=== PATIENT | male | born 2000 | race Caucasian/White ===

== ENCOUNTER 2018-05-18 20:32 | Inpatient (IN) ==
--- NOTE | 2018-05-18 20:43 | Emergency Department Note ---
Disposition Clinical Impression: Elevated troponin Pericarditis Qualifiers: Pericarditis type: unspecified type Chronicity: acute Qualified Code(s): I30.9 - Acute pericarditis, unspecified Disposition: Admitted As Inpatient Condition: Good Time of Disposition: 23:06 Chest Pain HPI - General Chief Complaint: ED Recheck/Abnormal Lab/Rx Stated Complaint: Trop 4.28 Time Seen by Provider: 05/18/18 20:41 Source: patient Mode of arrival: ambulatory Limitations: no limitations Vital Signs Reviewed: Yes Nursing Notes Reviewed: Yes - History of Present Illness HPI Narrative: Patient is a 17-year-old male otherwise healthy, immunizations up-to-date. He presents today due to reported elevated troponin level of 4, complaint of chest pain last night and this morning. Patient states that last night, he was eating [place] food. He had what felt like heartburn for about 20 minutes in the center of his chest described as a burning sensation and then went away. He took Tums and the pain went away. Denies any nausea or vomiting, sweating, shortness breath or episode. He states that when he woke up this morning around 16, he had a similar sensation that was less intense, no radiation anywhere else, again no associated factors, last around 2 minutes and then went away. He states that his mom later documented going to the hospital for assessment. He does report that he has had multiple family members that have had heart attacks around 19-20 years old. Mother just had a heart attack in her 40s recently. Patient himself has no other hypertension, diabetes, high cholesterol to his knowledge. He takes Celexa for depression. Patient was seen at an outside facility, patient reports that his troponin level is elevated and he was offered transfer to [facility] for [facility]. They were requesting to fly the patient. Patient said that he refused to fly, got angry and left AGAINST MEDICAL ADVICE. He arrived here for second opinion and for further care. - Related Data Home Medications Medication Instructions Recorded Confirmed Citalopram Hydrobromide [Celexa] 40 mg PO HS 05/18/18 05/18/18 Allergies Allergy/AdvReac Type Severity Reaction Status Date / Time No Known Allergies Allergy Verified 05/18/18 22:40 All systems ED: reviewed and negative except as stated. Constitutional: Denies: fever Cardiovascular: Reports: chest pain Respiratory: Denies: cough, dyspnea Gastrointestinal: Denies: abdominal pain, nausea, vomiting, diarrhea Musculoskeletal: Denies: back pain Integumentary: Denies: rash Neurological: Denies: headache, weakness, numbness, paresthesias Chest Pain PMH - Past Medical History Medical history: Reports: no medical history Physical Exam - General Limitations: no limitations General appearance: alert, in no apparent distress - Head Head exam: atraumatic, normocephalic, normal inspection - Eye Eye exam: Present: normal appearance, PERRL, EOMI - ENT ENT exam: normal exam, normal oropharynx, mucous membranes moist - Neck Neck exam: Present: normal inspection, full ROM, trachea midline - Chest Chest inspection: Present: normal inspection, symmetric chest wall rise. Absent : tenderness, rash - Respiratory Respiratory exam: Present: normal lung sounds bilaterally - Cardiovascular Cardiovascular exam: Present: regular rate, normal rhythm, normal heart sounds - Abdominal Exam Abdominal exam: Present: soft, Non-Tender. Absent: tenderness, distention, guarding, rebound, rigidity - Extremities Exam Extremities exam: Present: normal inspection, full ROM. Absent: tenderness, pedal edema - Neurological Exam Neurological exam: Present: alert, oriented X3. Absent: motor sensory deficit - Psychiatric Psychiatric exam: Present: normal affect, normal mood - Skin Skin exam: Present: warm, dry, intact, normal color Course Course Narrative: Vital stable this time. EKG shows difuse ST elevations and LA depression but no STEMI criteria. We will obtain basic blood work, repeat troponin level. We will then talk with cardiology. Concern for likely pericarditis at this time. This will likely be medical management with no skilled labor intervention. Patient has not had any pain since exam this morning he has artery received aspirin 325 mg an outside facility today. 21:43 basic blood work shows elevation white blood cell count elevated leukocyte count; ESR, CRP are also elevated; chest x-ray negative for any acute cardiopulmonary process. Repeat EKG #[address] elevation and mild LA depression. We will consult freight car loader at this time, discuss case, concern for likely pericarditis. Dr. Velasquez personally reviewed the EKGs and was concern for pericarditis as well. Did not want to perform emergent catheter at this time. Patient has not had any chest discomfort since 6 AM this morning. He did not recommend any anticoagulation at this time. Recommended trending troponins, and if he had any new or worsening symptoms will perform heart catheterization earlier. Otherwise, would likely perform heart catheter in the morning due to significant family history. Information discussed with Dr. Mcfarlane and Dr. Rhoades who have accepted the patient for admission at this time. Chest X-Ray 05/18/18 20:41 IMPRESSION: No evidence of pneumonia or pleural effusion. D/ / Kalia Bond / Kalia Bond Interpreting Provider: Kalia Bond Vital Signs Temperature 98.3 F 05/18/18 20:38 Pulse Rate 95 05/18/18 20:38 Respiratory Rate 18 05/18/18 20:38 Blood Pressure 120/81 05/18/18 20:38 O2 Sat by Pulse Oximetry 97 05/18/18 20:38 Temperature 98.3 F 05/18/18 20:38 Pulse Rate 92 05/18/18 22:34 Respiratory Rate 20 05/18/18 22:17 Blood Pressure 125/80 05/18/18 22:34 O2 Sat by Pulse Oximetry 92 05/18/18 22:17 Oxygen Delivery Oxygen Delivery Room Air Chest Pain - MDM Narrative Medical decision making narrative: Vital stable this time. EKG shows difuse ST elevations and LA depression but no STEMI criteria. We will obtain basic blood work, repeat troponin level. We will then talk with cardiology. Concern for likely pericarditis at this time. This will likely be medical management with no skilled labor intervention. Patient has not had any pain since exam this morning he has artery received aspirin 325 mg an outside facility today. 21:43 basic blood work shows elevation white blood cell count elevated leukocyte count; ESR, CRP are also elevated; chest x-ray negative for any acute cardiopulmonary process. Repeat EKG #[address] elevation and mild LA depression. We will consult freight car loader at this time, discuss case, concern for likely pericarditis. Dr. Velasquez personally reviewed the EKGs and was concern for pericarditis as well. Did not want to perform emergent catheter at this time. Patient has not had any chest discomfort since 6 AM this morning. He did not recommend any anticoagulation at this time. Recommended trending troponins, and if he had any new or worsening symptoms will perform heart catheterization earlier. Otherwise, would likely perform heart catheter in the morning due to significant family history. Information discussed with Dr. Mcfarlane and Dr. Rhoades who have accepted the patient for admission at this time. - Medical Records Medical records reviewed: Yes I reviewed the patient's medical records. - Lab Data Lab results reviewed: Yes I reviewed the patient's lab results. Result diagrams: 05/18/18 20:51 05/18/18 20:51 Lab Results 05/18/18 05/18/18 05/18/18 Range/Units 20:41 20:51 20:51 WBC 12.8 H (4.3-11.1) K/mcL RBC 5.19 (4.19-5.50) M/mcL Hgb 15.2 (12.9-16.9) g/dL Hct 45.0 (37.5-50.1) % MCV 86.7 (83.0-100.0) fL MCH 29.3 (28.0-33.3) pg MCHC 33.8 (31.6-35.5) g/dL RDW 13.5 (11.5-14.5) % Plt Count 167 (140-400) K/mcL MPV 10.7 (9.4-12.4) fL Immature Gran % 0.6 (0-4) % Seg Neutrophils % 32.4 % Lymphocytes % 58.1 % Monocytes % 6.9 % Eosinophils % 0.4 % Basophils % 1.6 % Neutrophils # 4.2 (1.6-8.9) K/mcL Lymphocytes # 7.4 H (0.6-4.6) K/mcL Monocytes # 0.9 (0.0-1.3) K/mcL Eosinophils # 0.1 (0.0-0.6) K/mcL Basophils # 0.2 (0.0-0.2) K/mcL Reactive Lymphocytes Present A (Not Present) Platelet Estimate Normal (Normal) ESR (0-10) mm/hr PT 11.5 (9.4-12.1) Seconds INR 1.0 APTT 32.7 (26.0-36.0) Seconds Sodium 136 (136-145) mEq/L Potassium 3.7 (3.5-5.1) mEq/L Chloride 102 (98-107) mEq/L Carbon Dioxide 24 (23-29) mEq/L BUN 9 (6-20) mg/dL Creatinine 0.82 (0.70-1.30) mg/dL Est GFR ( Amer) > 60 Est GFR (Non-Af Amer) > 60 BUN/Creatinine Ratio 11 (6-26) Glucose 89 (70-105) mg/dL Calculated Osmolality 280 (280-300) Calcium 9.1 (8.6-10.3) mg/dL Troponin I 3.51 H* (< 0.04) ng/mL C-Reactive Protein 30 H (Less than 10) mg/L 05/18/18 Range/Units 20:56 WBC (4.3-11.1) K/mcL RBC (4.19-5.50) M/mcL Hgb (12.9-16.9) g/dL Hct (37.5-50.1) % MCV (83.0-100.0) fL MCH (28.0-33.3) pg MCHC (31.6-35.5) g/dL RDW (11.5-14.5) % Plt Count (140-400) K/mcL MPV (9.4-12.4) fL Immature Gran % (0-4) % Seg Neutrophils % % Lymphocytes % % Monocytes % % Eosinophils % % Basophils % % Neutrophils # (1.6-8.9) K/mcL Lymphocytes # (0.6-4.6) K/mcL Monocytes # (0.0-1.3) K/mcL Eosinophils # (0.0-0.6) K/mcL Basophils # (0.0-0.2) K/mcL Reactive Lymphocytes (Not Present) Platelet Estimate (Normal) ESR 14 H (0-10) mm/hr PT (9.4-12.1) Seconds INR APTT (26.0-36.0) Seconds Sodium (136-145) mEq/L Potassium (3.5-5.1) mEq/L Chloride (98-107) mEq/L Carbon Dioxide (23-29) mEq/L BUN (6-20) mg/dL Creatinine (0.70-1.30) mg/dL Est GFR ( Amer) Est GFR (Non-Af Amer) BUN/Creatinine Ratio (6-26) Glucose (70-105) mg/dL Calculated Osmolality (280-300) Calcium (8.6-10.3) mg/dL Troponin I (< 0.04) ng/mL C-Reactive Protein (Less than 10) mg/L - Radiology Data Radiology results reviewed: Yes I reviewed the patient's radiology results. - EKG Data EKG attestation: Yes I reviewed and interpreted this EKG. EKG results narrative: EKG #1. 05/18/2018 at 20:37. Sinus tachycardia. Rate 102. LA 152. QRS 93. QTC 429. Normal axis. ST elevation in lead 1, 2, aVL, V2 through V6 with associated LA depression. No STEMI criteria, concerning for pericarditis. No electrical alternans. EKG #2:05/18/2018 at 21:36. Normal sinus rhythm. Heart rate 94. LA 152. QRS 91. QTC 418. Normal axis.ST elevation in lead 1, 2, aVL, V2 through V6 with associated LA depression. No STEMI criteria, concerning for pericarditis. No electrical alternans.
[2018-05-18] MEDS ORDERED: Nicotine 21 MG PATCH.TD24 TD ONE (20:51)
[2018-05-18 21:07] LABS: Basophils # 0.2 K/mcL (0.0-0.2); Basophils % 1.6 %; Eosinophils # 0.1 K/mcL (0.0-0.6); Eosinophils % 0.4 %; Hemoglobin 15.2 g/dL (12.9-16.9); Immature Granulocytes % 0.6 % (0-4); Lymphocytes % 58.1 %; Mean Corpuscular HGB Conc 33.8 g/dL (31.6-35.5); Mean Corpuscular Hemoglobin 29.3 pg (28.0-33.3); Mean Corpuscular Volume 86.7 fL (83.0-100.0); Mean Platelet Volume 10.7 fL (9.4-12.4); Monocytes # 0.9 K/mcL (0.0-1.3); Monocytes % 6.9 %; Neutrophils # 4.2 K/mcL (1.6-8.9); Platelet Count 167 K/mcL (140-400); Red Blood Count 5.19 M/mcL (4.19-5.50); Red Cell Distribution Width 13.5 % (11.5-14.5); Segmented Neutrophils % 32.4 %
[2018-05-18 21:08] LABS: Lymphocytes # 7.4 K/mcL (0.6-4.6)
[2018-05-18 21:15] LABS: Prothrombin Time 11.5 Seconds (9.4-12.1)
[2018-05-18 21:18] LABS: Activated Partial Thrombo Time 32.7 Seconds (26.0-36.0)
[2018-05-18 21:24] LABS: Platelet Estimate Normal (Normal); Reactive Lymphocytes Present (Not Present)
[2018-05-18 21:28] LABS: BUN/Creatinine Ratio 11 (6-26); Blood Urea Nitrogen 9 mg/dL (6-20); C-Reactive Protein 30 mg/L (Less than 10); Calcium 9.1 mg/dL (8.6-10.3); Carbon Dioxide 24 mEq/L (23-29); Chloride 102 mEq/L (98-107); Glucose 89 mg/dL (70-105); Osmolality,Calculated 280 (280-300); Potassium 3.7 mEq/L (3.5-5.1); Sodium 136 mEq/L (136-145); eGFR For Non-African Americans > 60
[2018-05-18 21:34] LABS: Troponin I 3.51 ng/mL (< 0.04)
--- NOTE | 2018-05-18 21:56 | Emergency Department Note ---
Disposition Clinical Impression: Pericarditis, Elevated troponin Disposition: Admitted As Inpatient Referrals: NONE,PCP [Primary Care Provider] - Forms: ED Satisfaction Letter General Adult HPI - General Chief complaint: ED Recheck/Abnormal Lab/Rx Stated complaint: Trop 4.28 Time Seen by Provider: 05/18/18 20:41 Source: patient Mode of arrival: ambulatory Limitations: no limitations - History of Present Illness Pain Scale: 0 Constitutional: Denies: fever Cardiovascular: Reports: chest pain Respiratory: Denies: cough, dyspnea Gastrointestinal: Denies: abdominal pain, nausea, vomiting, diarrhea Musculoskeletal: Denies: back pain Integumentary: Denies: rash Neurological: Denies: headache, weakness, numbness, paresthesias Past Medical History - Past Medical History Medical history: Reports: no medical history Psychiatric history: Reports: no psych history - Social History Smoking Status: Current every day smoker Smokeless Tobacco Status: No Alcohol use: Reports: none Drug use: Reports: none Physical Exam - General Limitations: no limitations General appearance: alert, in no apparent distress Course Vital Signs Temperature 98.3 F 05/18/18 20:38 Pulse Rate 95 05/18/18 20:38 Respiratory Rate 18 05/18/18 20:38 Blood Pressure 120/81 05/18/18 20:38 O2 Sat by Pulse Oximetry 97 05/18/18 20:38 Temperature 98.3 F 05/18/18 20:38 Pulse Rate 99 05/18/18 21:28 Respiratory Rate 16 05/18/18 21:28 Blood Pressure 123/82 05/18/18 21:28 O2 Sat by Pulse Oximetry 92 05/18/18 21:28 Oxygen Delivery Oxygen Delivery Room Air Medical Decision Making - Lab Data Result diagrams: 05/18/18 20:51 05/18/18 20:51 Lab Results 05/18/18 05/18/18 05/18/18 Range/Units 20:41 20:51 20:51 WBC 12.8 H (4.3-11.1) K/mcL RBC 5.19 (4.19-5.50) M/mcL Hgb 15.2 (12.9-16.9) g/dL Hct 45.0 (37.5-50.1) % MCV 86.7 (83.0-100.0) fL MCH 29.3 (28.0-33.3) pg MCHC 33.8 (31.6-35.5) g/dL RDW 13.5 (11.5-14.5) % Plt Count 167 (140-400) K/mcL MPV 10.7 (9.4-12.4) fL Immature Gran % 0.6 (0-4) % Seg Neutrophils % 32.4 % Lymphocytes % 58.1 % Monocytes % 6.9 % Eosinophils % 0.4 % Basophils % 1.6 % Neutrophils # 4.2 (1.6-8.9) K/mcL Lymphocytes # 7.4 H (0.6-4.6) K/mcL Monocytes # 0.9 (0.0-1.3) K/mcL Eosinophils # 0.1 (0.0-0.6) K/mcL Basophils # 0.2 (0.0-0.2) K/mcL Reactive Lymphocytes Present A (Not Present) Platelet Estimate Normal (Normal) ESR (0-10) mm/hr PT 11.5 (9.4-12.1) Seconds INR 1.0 APTT 32.7 (26.0-36.0) Seconds Sodium 136 (136-145) mEq/L Potassium 3.7 (3.5-5.1) mEq/L Chloride 102 (98-107) mEq/L Carbon Dioxide 24 (23-29) mEq/L BUN 9 (6-20) mg/dL Creatinine 0.82 (0.70-1.30) mg/dL Est GFR ( Amer) > 60 Est GFR (Non-Af Amer) > 60 BUN/Creatinine Ratio 11 (6-26) Glucose 89 (70-105) mg/dL Calculated Osmolality 280 (280-300) Calcium 9.1 (8.6-10.3) mg/dL Troponin I 3.51 H* (< 0.04) ng/mL C-Reactive Protein 30 H (Less than 10) mg/L 05/18/18 Range/Units 20:56 WBC (4.3-11.1) K/mcL RBC (4.19-5.50) M/mcL Hgb (12.9-16.9) g/dL Hct (37.5-50.1) % MCV (83.0-100.0) fL MCH (28.0-33.3) pg MCHC (31.6-35.5) g/dL RDW (11.5-14.5) % Plt Count (140-400) K/mcL MPV (9.4-12.4) fL Immature Gran % (0-4) % Seg Neutrophils % % Lymphocytes % % Monocytes % % Eosinophils % % Basophils % % Neutrophils # (1.6-8.9) K/mcL Lymphocytes # (0.6-4.6) K/mcL Monocytes # (0.0-1.3) K/mcL Eosinophils # (0.0-0.6) K/mcL Basophils # (0.0-0.2) K/mcL Reactive Lymphocytes (Not Present) Platelet Estimate (Normal) ESR 14 H (0-10) mm/hr PT (9.4-12.1) Seconds INR APTT (26.0-36.0) Seconds Sodium (136-145) mEq/L Potassium (3.5-5.1) mEq/L Chloride (98-107) mEq/L Carbon Dioxide (23-29) mEq/L BUN (6-20) mg/dL Creatinine (0.70-1.30) mg/dL Est GFR ( Amer) Est GFR (Non-Af Amer) BUN/Creatinine Ratio (6-26) Glucose (70-105) mg/dL Calculated Osmolality (280-300) Calcium (8.6-10.3) mg/dL Troponin I (< 0.04) ng/mL C-Reactive Protein (Less than 10) mg/L Critical Care Time Critical Care Time: Yes Total Critical Care Time: 30 Attestation: CC time of 30 min spent in management of pericarditis, cp, elevated trop and consult with cardiology. Attestation Statement - Attestation Attestation: I examined this patient and my medical decision-making was reviewed with the Resident Physician. I agree with the documented findings, disposition and treatment plan as described except to the extent set forth below. 17 yo M here for chest pain eval. Patient was seen at an outlying emergency room and found to have an elevated troponin. He was supposed to be transferred to [facility] to have a heart catheterization done but he refused to fly in a helicopter to have this done. They were concerned about an ST elevation DE. Patient left AMA. He presented to our emergency room for evaluation for the elevated troponin. He states he had a few minutes of chest discomfort indigestion heartburn type feeling yesterday that completely resolved. Has not had any significant chest pain at all today or any other associated symptoms. He denies IV drug use. No history of cocaine use. His troponin here was found to be elevated greater than 3. His EKG was concerning as he did have ST elevation but there is obvious J-point elevation associated with this which would be more benign as far as any ACS event. It seems as though he has more of a pericarditis pattern on the EKG as he has ST elevation throughout multiple leads with no reciprocal changes as well as presence of some slight [place] depression which would coincide with pericarditis. Also, he has an elevation of his ESR and CRP which can also be seen in pericarditis. He ordered a received aspirin today. He does not have any chest pain. The case was discussed with the on-call section leader screen printing, Dr. Velasquez. We will admit the patient to the hospitalist. Consult cardiology.
[2018-05-18] MEDS ORDERED: Acetaminophen 325 MG TABLET PO PRN (23:16)
[2018-05-18] MEDS ORDERED: traMADol 50 MG TABLET PO PRN (23:16)
[2018-05-18] MEDS ORDERED: *HR* Heparin 5,000 UNIT/ML VIAL IVP ONE (23:16)
[2018-05-18] MEDS ORDERED: *HR* Heparin 5,000 UNIT/ML VIAL IVP PRN ×2 (23:16)
[2018-05-18] MEDS ORDERED: Naloxone 0.4 MG/ML INJ IVP PRN (23:16)
[2018-05-18] MEDS ORDERED: *HR* Morphine 2 MG/ML SYRINGE IVP PRN (23:16)
[2018-05-18] MEDS ORDERED: Nitroglycerin 0.4 MG TAB.SUBL SL PRN (23:16)
[2018-05-18] MEDS ORDERED: 0.9 % Sodium Chloride w KCl 20 MEQ/1,000 ML MLS IVC SCH (23:30)
[2018-05-18] MEDS ORDERED: Heparin 25,000 UNIT/500 ML D5W 25,000 UNIT/500 ML BAG IVC SCH (23:30)
[2018-05-18 23:39] LABS: Amphetamine Screen,Urine Negative ng/mL (Cutoff=1000); Barbiturate Screen,Urine Negative ng/mL (Cutoff=200); Benzodiazepines Screen,Urine Negative ng/mL (Cutoff=200); Cannabinoid Screen,Urine Positive ng/mL (Cutoff = 50); Cocaine Screen,Urine Negative ng/mL (Cutoff= 300); Opiate Screen,Urine Positive ng/mL (Cutoff=300); Phencyclidine Screen,Urine Negative ng/mL (Cutoff=25)
--- NOTE | 2018-05-18 23:46 | Internal Med History&Physical ---
Date of Encounter: 05/18/18 Time of Encounter: 22:35 Internal Medicine - H&P: HPI Chief complaint: chest pain; SOB Admitted From: Emergency Dept Plans for Post Hospital Care: Home History of present illness: Mr. Villa is a 17 year old male who [facility] for concerns and complaints of chest pain and shortness of breath. Prior to the arrival to our ER, he was seen at [facility] in [facility]. There was concern that he was having a STEMI, and he was due to be transported by [employer] air [facility] to [facility] for emergency left heart catheterization. However, due to his fear of flying, he signed out AGAINST MEDICAL ADVICE and came to our ER with his sister driving in excessive of [address] [place] get here. Upon arrival to the ER, he was seen and evaluated and had a positive troponin of 3.51. EKGs did show some ST elevation, but there was clinical concerns per ER staff that he had pericarditis. Of note, his troponin at [place] was over 4. ER staff discussed the case with interventional cardiology (Dr. Velasqeuz), and it was felt the patient did not have a STEMI and should be admitted to hospitalist service with cardiology consultation. We were then notified of the admission. Because of his critical presentation, EKG changes, troponin elevation, and strong family history of premature coronary disease and PA, I came to the ER to see him urgently. Patient is currently chest pain-free and has no symptoms. He does describe some chest tightness, heaviness, dyspnea with exertion, and fatigue over the last 3 days. He denies any fevers, chills, night sweats, cough, congestion, or sore throat. He does have a swollen lymph node is right anterior cervical part of his neck. Other than that, he has no URI symptoms. His family history is very concerning for premature coronary artery disease and PA. His mother just had an PA 2 months ago at the age of 45 and had the " maker". He has an uncle who had heart attack at age of 19 and his grandfather had a heart attack at 18. There is extensive premature coronary disease in the males in his family. There is no family history of blood clots. Patient denies any illicit drug use other than marijuana. He does smoke 1 pack per day. He denies any alcohol use. He does drink excessive soda pop and energy drinks, however. I personally reviewed his EKGs and then I called Dr. Velasquez and spoke to him myself. Of note, patient does have ST elevation in leads V2 to V6, but they do have J-point elevation, especially in leads V4 to V6. Additionally, he has similar changes in Leads 1 and 2. I discussed the plan of care with Dr. Velasquez and the clinical concern for his presentation and his family history. Dr. Velasquez recommended obtaining a stat troponin and, if it is trending up, he will come in and do left heart catheterization this evening. Furthermore, if he has any chest pain or anginal symptoms tonight, he asked me to call him and he will proceed with left heart catheterization this evening. Otherwise, he will plan for left heart catheter tomorrow morning. Meanwhile, we will start him on heparin drip and cardiac medications as necessary. Dr. Velasquez agreed. A urine drug screen is pending, but based upon history and discussions with patient and his sister and fiancee, there is no reported history of drug use other than marijuana. Past Med Surg Social Fam HX - Past Medical History Attestation: Yes The following information was validated with the patient. Source: patient, obtained from family Medical history: no medical history Psychiatric history: no psych history - Past Surgical History Surgical History: no surgical history - Social History Smoking Status: Current every day smoker Smokeless Tobacco Status: No Alcohol use: none Drug use: marijuana Current living situation: Home, With Family Activity Level: Independent ambulation Recent Out of Country Travel Within the Last 8 Weeks: No - Family History Mother Living Status: Still Living Hx Family Cardiac Disorders: Yes (PA at 45 yo) Paternal Grandfather Living Status: Hx Family Cardiac Disorders: Yes (PA 19 yo) - Additional Family History Additional family history: FH premature CAD/PA in males in the family; uncle with PA at 18 yo Internal Medicine - H&P: Meds Citalopram Hydrobromide [Celexa] 40 mg PO HS 05/18/18 [History] 3 Allergy/AdvReac Type Severity Reaction Status Date / Time No Known Allergies Allergy Verified 05/18/18 22:40 - Constitutional Constitutional: no chills, no fever(s), no night sweats - EENT Eyes: no blurry vision, no change in vision Ears: no ear pain, no tinnitus Nose, mouth and throat: no nasal congestion, no sinus pressure, no sore throat - Cardiovascular Cardiovascular ROS IM: chest pain, dyspnea, dyspnea on exertion, no lightheadedness, no orthopnea, no palpitations, no paroxysmal nocturnal dyspnea , no syncope - Respiratory Respiratory: no cough, no hemoptysis, no chest congestion, no excessive phlegm production, no change in phlegm color - Gastrointestinal Gastrointestinal: no abdominal pain, no diarrhea, no hematemesis, no hematochezia, no melena, no vomiting - Genitourinary Genitourinary ROS male: no dysuria, no flank pain, no hematuria - Musculoskeletal Musculoskeletal ROS IM: no arthralgias, no back pain - Integumentary Integumentary IM: no rash, no jaundice - Neurological Neurological ROS: no dizziness, no focal weakness, no frequent falls, no headache(s) - Psychiatric Psychiatric: no anxiety, no depression - Endocrine Endocrine IM: no cold intolerance, no heat intolerance, no polydipsia, no polyphagia, no polyuria - Hematologic/Lymphatic Hematologic/Lymphatic: lymphadenopathy (right neck), no easy bruising - Allergic/Immunologic Allergic/Immunologic: no wheezing, no GI upset with certain foods - Constitutional Vitals: Temp Pulse Resp BP Pulse Ox 98.3 F 92 20 125/80 92 05/18/18 20:38 05/18/18 22:34 05/18/18 22:17 05/18/18 22:34 05/18/18 22:17 General appearance: Present: cooperative, A&O X 3, pleasant, no acute distress, answers questions appropriately Exam: see below - Head Head exam: Present: atraumatic, normal inspection - Eye Eye exam: Present: EOMI, PERRL. Absent: scleral icterus Pupils: Present: normal accommodation - ENT ENT exam: Present: mucous membranes moist, normal exam Additional comments: palpable, mildly tender, right anterior cervical lymph node; no other lymphadenopathy; neck supple; full ROM - Neck Neck exam general surgery: Present: full ROM, supple, trachea midline. Absent: nuchal rigidity, thyromegaly - Respiratory Respiratory exam: Present: CTAB. Absent: chest wall tenderness, rales, respiratory distress, rhonchi, wheezes - Cardiovascular Cardiovascular exam: Present: RRR, +S1, +S2. Absent: diastolic murmur, rubs, systolic murmur - GI/Abdominal GI/Abdominal exam: Present: normal bowel sounds, soft. Absent: hepatomegaly, mass, splenomegaly, tenderness - Extremities Exam Extremities exam: Present: full ROM, normal capillary refill, warm, radial pulses palpable and symmetrical. Absent: calf tenderness, joint swelling, pedal edema, tenderness - Back Exam Back exam: Absent: CVA tenderness (L), CVA tenderness (R) - Neurological Exam Neurological exam: Present: alert, CN II-XII intact, oriented X3, no focal deficits, strengths equal and symetr throughout - Psychiatric Psychiatric exam: Present: normal affect, normal mood - Skin Skin exam: Present: dry, intact, warm. Absent: rash Internal Med - H&P Results - Labs CBC & Chem 7: 05/18/18 20:51 05/18/18 20:51 - EKG Data -: EKG Interpreted by Myself - EKG Data Prior EKG available for review: no EKG comments: 05/18/18 23:54 Sinus rhythm; ST elevation with early J-point elevation in leads V2-V6 and leads 1 and 2 -- discussed with Dr. Velasquez. Dr. Velasquez also reviewed EKG tracings. - Diagnostic Studies Chest x-ray Status: image reviewed by me (negative) - Assessment and plan (1) NSTEMI (non-ST elevated myocardial infarction) Current Visit: Yes Status: Acute Assessment and plan: 1. I personally viewed and reviewed EKG's with Dr. Velasquez, who also reviewed EKG's 2. Patient currently asymptomatic. Repeat tropoin is trending down. 3. Plan for LHC in the morning with Dr. Velasquez unless he develops anginal symptom -- then we would proceed with LHC tonight as discussed with Dr. Velasquez. 4. Will start heparin drip, BB, STATIN, ASA. Note, patient did received Aspirin tonight at [facility] ER. 5. Will trend troponins, EKG's, and order ECHO in the morning. 6. Urine Drug Screen pending -- ordered in ER. (2) Anterior cervical lymphadenopathy Current Visit: Yes Status: Acute Assessment and plan: 1. Will place on Omnicef and monitor clinically. 2. After cardiac issues resolve, patient will need CT imaging of neck to better define the lymphadenopaty vs lymphadenitis. (3) DVT prophylaxis Current Visit: Yes Status: Acute Assessment and plan: 1. Heparin drip as above.
[2018-05-19 00:12] LABS: Hematocrit 44.8 % (37.5-50.1); Hemoglobin 15.1 g/dL (12.9-16.9); Mean Corpuscular HGB Conc 33.7 g/dL (31.6-35.5); Mean Corpuscular Hemoglobin 29.6 pg (28.0-33.3); Mean Corpuscular Volume 87.8 fL (83.0-100.0); Mean Platelet Volume 10.5 fL (9.4-12.4); Platelet Count 157 K/mcL (140-400); Red Cell Distribution Width 13.7 % (11.5-14.5)
[2018-05-19] MEDS: Cefdinir 300 MG CAPSULE PO SCH ×2 (00:18→10:31)
[2018-05-19 00:21] LABS: Heparin anti-factor XA UFH 0.07 IU/mL (0.30-0.70)
[2018-05-19 00:22] LABS: Prothrombin Time 11.1 Seconds (9.4-12.1)
[2018-05-19 06:37] LABS: Basophils # 0.1 K/mcL (0.0-0.2); Basophils % 1.4 %; Eosinophils # 0.1 K/mcL (0.0-0.6); Eosinophils % 0.8 %; Hemoglobin 14.8 g/dL (12.9-16.9); Immature Granulocytes % 0.6 % (0-4); Lymphocytes # 5.5 K/mcL (0.6-4.6); Lymphocytes % 54.2 %; Mean Corpuscular HGB Conc 33.6 g/dL (31.6-35.5); Mean Corpuscular Hemoglobin 29.7 pg (28.0-33.3); Mean Corpuscular Volume 88.2 fL (83.0-100.0); Mean Platelet Volume 10.7 fL (9.4-12.4); Monocytes # 0.8 K/mcL (0.0-1.3); Monocytes % 7.5 %; Neutrophils # 3.6 K/mcL (1.6-8.9); Nucleated Red Blood Cells 0.3 /100 WBC (0); Platelet Count 153 K/mcL (140-400); Red Blood Count 4.99 M/mcL (4.19-5.50); Red Cell Distribution Width 13.8 % (11.5-14.5); Segmented Neutrophils % 35.5 %
[2018-05-19 06:43] LABS: INR 0.9; Prothrombin Time 10.6 Seconds (9.4-12.1)
[2018-05-19 06:46] LABS: Activated Partial Thrombo Time 40.6 Seconds (26.0-36.0)
[2018-05-19 07:04] LABS: Alanine Aminotransferase 103 Units/L (7-52); Albumin 3.8 g/dL (3.5-5.7); Albumin/Globulin Ratio 1.5 (1.1-2.2); Alkaline Phosphatase 186 Units/L (34-104); Aspartate Amino Transferase 102 Units/L (13-39); BUN/Creatinine Ratio 12 (6-26); Bilirubin,Total 0.8 mg/dL (0.3-1.0); Blood Urea Nitrogen 11 mg/dL (6-20); Carbon Dioxide 26 mEq/L (23-29); Chloride 104 mEq/L (98-107); Chol/HDL Ratio 6.9 (0-4.9); Cholesterol 166 mg/dL (< 200); Globulin 2.6 g/dL (2.4-3.5); Glucose 101 mg/dL (70-105); HDL Cholesterol 24 mg/dL (40-59); LDL Cholesterol,Calculated 96 mg/dL (0-99); Osmolality,Calculated 282 (280-300); Potassium 4.3 mEq/L (3.5-5.1); Sodium 136 mEq/L (136-145); Total Protein 6.4 g/dL (6.4-8.9); Triglycerides 231 mg/dL (< 150); eGFR For Non-African Americans > 60
[2018-05-19 07:06] LABS: Troponin I 4.66 ng/mL (< 0.04)
[2018-05-19 07:31] LABS: Platelet Estimate Normal (Normal); Reactive Lymphocytes Present (Not Present)
[2018-05-19] MEDS ORDERED: ISOVUE-370 200 ML INFUS..BTL IV ONE (08:19)
[2018-05-19] MEDS ORDERED: Heparin 1,000 UNITS/500 mL 500 ML ONE (08:19)
[2018-05-19] MEDS ORDERED: 0.9 % Sodium Chloride 1,000 ML ONE ×2 (08:19→08:54)
[2018-05-19] MEDS ORDERED: *HR* Heparin 10,000 UNIT/10 ML VIAL ONE (08:19)
[2018-05-19] MEDS ORDERED: Nitroglycerin 1,000 MCG/10 ML VIAL IV ONE (08:19)
[2018-05-19] MEDS ORDERED: *HR* Midazolam HCl 2 MG/2 ML VIAL ONE (08:48)
[2018-05-19] MEDS ORDERED: *HR* FentaNYL (PF) 100 MCG/2 ML VIAL ONE (08:48)
--- NOTE | 2018-05-19 08:50 | Cardiology Consult Note ---
Addendum entered and electronically signed by Matthieu Burroughs CNP 05/19/18 10:41 : Discussed with Dr. Velasquez, no significant stenosis on left heart catheter. Likely myocarditis/ pericarditis. Recommended to start colchicine and aspirin. She is seen 0.6 mg twice a day for 3 months and aspirin 650 mg 3 times a day tapered over a two-week period depending on chest pain. TTE pending. Original Note: <Matthieu Burroughs - Last Filed: 05/19/18 08:44> Date of Encounter: 05/19/18 Time of Encounter: 08:30 Assessment and Plan (1) Acute electrocardiogram changes Current Visit: Yes Status: Acute EKG changes concerning for KS VS pericarditis/myocarditis s/p recent viral illness in young male. Initial eval at outside hospital with EKG changes including ST elevation and troponin up to 4. Patient left AMA . Troponin at [place] elevated at 3.5, 3.37, and 4.66. He continues to have persistent chest pain and increase in troponin. Cardiac risk factors tobacco abuse and family history of KS at young age. He is now being taken for emergent LHC. R/B/A of LHC reviewed with patient and his fiancee. Patient agrees to proceed. He is currently on heparin drip. (2) Elevated troponin Current Visit: Yes Status: Acute Discussion w patient/family: The assessment and plan as outlined above was discussed with the patient and/or family members who expressed understanding and agreement. All questions were answered. Thank you for involving us in the care of your patient. Please call with any questions. History of Present Illness Consult date: 05/19/18 Requesting physician: James Rhoades Consult reason: EKG changes, possible KS Chief complaint: Chest pain History of present illness: Mr. Villa is a 17 year old male with past medical history significant for tobacco abuse who presented with a complain of chest pain. He was seen originally at [facility] with chest pain. He was reported to have been found to have acute KS with ST elevation on his EKG. He was recommended for life flight to another hospital. Apparently due to his fear of flying he left AMA. His sister then drove him to [facility]. On presentation EKG completed and did show diffuse ST elevation. Troponin was found to be elevated at 3.5, 3.37, and 4.66. He noted sore throat one week prior to onset of chest pain. He was also found to have swollen lymph nodes in his neck. EKG was reviewed with fish tender and there was concern for pericarditis / myocarditis. On my exam patient reports recurrent severe chest pain that was not relieved by morphine that was given to him this morning. He is rocking in bed holding his chest. The heart catheterization team was called in for emergent cardiac catheterization for persistent chest pain and EKG changes. Past Med Surg Social Fam HX - Past Medical History Medical history: no medical history Psychiatric history: no psych history - Past Surgical History Surgical History: no surgical history - Social History Smoking Status: Current every day smoker Packs per day: 1 Smokeless Tobacco Status: No Alcohol use: none Drug use: marijuana Additional social history: Drinks excessive energy drinks - Family History Mother Adopted: No Living Status: Still Living Hx Family Cardiac Disorders: Yes (grandpa, mother, heart attack) Hx Family Respiratory Disorders: No Hx Family Cancer: Yes (lympohma sister, aunt cervical cancer.) Hx Family GI Disorders: No Hx Family Genitourinary Disorders: No Hx Family Endocrine Disorder: Yes (mother, grandparents DM) Hx Family Musculoskeletal Disorders: No Hx Family Neuromuscular Disorders: No Hx Family Neurologic Disorders: No Hx Family HEENT Disorders: No Hx Family Autoimmune Disorders: No Hx Family Reproductive Disorders: No Hx Family Psychosocial Disorders: No Hx Family Medical Disorders: No Paternal Grandfather Living Status: Hx Family Cardiac Disorders: Yes (KS 19 yo) Medications and Allergies Citalopram Hydrobromide [Celexa] 40 mg PO HS 05/18/18 [History] 3 Allergy/AdvReac Type Severity Reaction Status Date / Time No Known Allergies Allergy Verified 05/18/18 22:40 All Systems Review: The remainder of the systems were reviewed and are negative Physical Examination Vital Signs, Last 4 Hours Temp Pulse Resp BP Pulse Ox 05/19/18 06:49 98.8 F 78 18 94/55 97 General: Conversant, Other (Appears anxious) HEENT: Atraumatic, Normocephaly, Mucus Membranes Moist Neck: No JVD, Normal carotid pulses Cardiac: Reg Rate and Rhythm, Normal S1 and S2, No Murmur Lungs: Normal Breath Sounds, No Wheeze, Rales, Rhonchi Neuro: Alert and responsive, No focal deficits noted Abdomen: Soft, Non-Tender Skin: No rashes noted on visualized skin Musculoskeletal: No Chest Wall Tenderness Extremities: No Clubbing, No Cyanosis, No Edema, Normal Pulses Results 05/19/18 06:27 05/19/18 06:27 Lab Results 05/18/18 05/18/18 05/18/18 22:55 23:55 23:55 WBC 11.8 H Hgb 15.1 Hct 44.8 Plt Count 157 INR 1.0 APTT Sodium Potassium Chloride Carbon Dioxide BUN Creatinine Glucose Calcium Magnesium Total Bilirubin AST ALT Alkaline Phosphatase Troponin I 3.37 H* 05/19/18 05/19/18 05/19/18 06:27 06:27 06:27 WBC 10.1 Hgb 14.8 Hct 44.0 Plt Count 153 INR 0.9 APTT 40.6 H Sodium 136 Potassium 4.3 Chloride 104 Carbon Dioxide 26 BUN 11 Creatinine 0.90 Glucose 101 Calcium 9.0 Magnesium 2.0 Total Bilirubin 0.8 AST 102 H ALT 103 H Alkaline Phosphatase 186 H Troponin I 4.66 H* - EKG Interpretation EKG results cardiology: personally reviewed (Sinus rhythm with diffuse ST elevation possible ND depression in leads 1 through aVF and V3 through V6 nonspecific T-wave changes in V1 through V2.) Consult Discharge Plan - Plan Referrals: NONE,PCP [Primary Care Provider] - <Ross Velasquez - Last Filed: 05/19/18 15:55> Date of Encounter: 05/19/18 - Attending Attestation I have personally performed a face to face evaluation on this patient. I have reviewed and agree with the care plan. History and Exam by me shows: 17-year-old male presents to the cardiac [facility] Area Director for EKG changes and severe chest pain associated with elevated troponins with a peak of 1.74. His EKG does show. Depressions and diffuse ST elevations consistent with pericarditis however presenting symptoms overwhelming and nonpleuritic. LHC performed with coronary arteries. We will start nonsteroidal anti-inflammatory medications and colchicine for pain control, obtain echocardiogram to structural heart abnormalities. Assessment and Plan Discussion w patient/family: The assessment and plan as outlined above was discussed with the patient and/or family members who expressed understanding and agreement. All questions were answered. Thank you for involving us in the care of your patient. Please call with any questions. History of Present Illness History of present illness: Mr. Villa is a 17 year old male All Systems Review: The remainder of the systems were reviewed and are negative Results 05/19/18 06:27 05/19/18 06:27 Lab Results 05/19/18 12:13 Troponin I 8.30 H*
--- NOTE | 2018-05-19 08:57 | Pre-Sedation Evaluation ---
Pre-sedation evaluation - Pre-sedation checklist Date of procedure: 05/19/18 Procedure: LHC Recent Vitals: Last Vital Signs Temp 98.8 F 05/19/18 06:49 Pulse 78 05/19/18 06:49 Resp 18 05/19/18 06:49 BP 94/55 05/19/18 06:49 Pulse Ox 97 05/19/18 06:49 ASA Classification *see protocol: CLASS II-Mild systemic disease Cardiac Registry (Cardio Only) - Functional Capacity Functional Capacity: >=4 METS with symptoms - Clincal Frailty Scale Clinical Frailty Scale: Managing Well
[2018-05-19] MEDS ORDERED: Aspirin Enteric Coated 81 MG Tablet PO SCH (09:00)
--- NOTE | 2018-05-19 09:23 | Internal Med Progress Note ---
Hospitalist Progress Note - Encounter Date of Encounter: 05/19/18 Time of Encounter: 09:23 - Subjective Interval History: 17 M with significant family hx who presented with chest pain and EKG changes that were concerning for pericarditis He is seen s/p [facility] with family, no obstruction found on [facility] Peak troponin at this time 4.66 ECHO is pending He has no chest pain at this time He did have sore throat about a week ago, for which he completed a 7 days course of antibiotics, no swabs or testing was done, he also has R ant cervical lymphadenopathy which is persistent He has been started on high dose ASA by cardiology and is currently on IVF hydration - Exam Vitals: Temp Pulse Resp BP Pulse Ox 98.8 F 78 18 94/55 97 05/19/18 06:49 05/19/18 06:49 05/19/18 06:49 05/19/18 06:49 05/19/18 06:49 Exam: Gen: VSS Psych: Normal mood Neuro: AAOX3, moves all extremities , no focal deficits HEENT: R anterior cervical adenopathy, no visible hyperemia or vessicles on the pharynx, no oral lesions Chest: CTAB Heart: S1, S2 only, no m/g/r Abdomen: Soft, not tender Extremities: NO pedal edema Skin: No rash - Assessment and Plan (1) Acute electrocardiogram changes Current Visit: Yes Status: Acute Assessment and Plan: EKG changes with ST elevation in multiple leads, accompanied by chest pain in a patient with a recent hx of pahryngitis, likely viral Secondary to pericarditis s/p [facility] with no obstructive lesions Continue high dose ASA and Colchicine Follow ECHO Continue to cycle trops Follow official cath report (2) Elevated troponin Current Visit: Yes Status: Acute Assessment and Plan: as above (3) Pericarditis Current Visit: Yes Status: Acute Assessment and Plan: Likely pericarditis,as well as myocarditis Peak troponin 4.66, continue to cycle Continue high dose ASA and Colchicine (4) Lymphadenopathy Current Visit: Yes Status: Acute Assessment and Plan: R ant neck lymphadenopathy, likely secondary to viral pharyngitis Continue OMnicef, will obtain soft tissue neck CT when patient is more stable - Time Spent with Patient Total time spent is greater than 50% in coordination of care (as documented) at patient's floor/unit and/or counseling patient: Plan of Care Discussed with: patient Internal Medicine: Result - Labs CBC & Chem 7: 05/19/18 06:27 05/19/18 06:27 Labs: Short CBC 05/18/18 05/19/18 Range/Units 23:55 06:27 WBC 11.8 H 10.1 (4.3-11.1) K/mcL Hgb 15.1 14.8 (12.9-16.9) g/dL Hct 44.8 44.0 (37.5-50.1) % Plt Count 157 153 (140-400) K/mcL Neutrophils # 3.6 (1.6-8.9) K/mcL BMP 05/19/18 06:27 Sodium 136 Potassium 4.3 Chloride 104 Carbon Dioxide 26 BUN 11 Creatinine 0.90 Glucose 101 Calcium 9.0 Cardiac Enzymes 05/18/18 05/19/18 Range/Units 22:55 06:27 Troponin I 3.37 H* 4.66 H* (< 0.04) ng/mL Liver Function 05/19/18 Range/Units 06:27 Total Bilirubin 0.8 (0.3-1.0) mg/dL AST 102 H (13-39) Units/L ALT 103 H (7-52) Units/L Alkaline Phosphatase 186 H (34-104) Units/L Albumin 3.8 (3.5-5.7) g/dL - ABG Interpretation ABG results: PT/INR, D-dimer PT 10.6 Seconds (9.4-12.1) 05/19/18 06:27 Consult Discharge Plan - Plan Referrals: NONE,PCP [Primary Care Provider] - (3) Pericarditis Qualifiers: Pericarditis type: unspecified type Chronicity: acute Qualified Code(s): I30.9 - Acute pericarditis, unspecified
--- NOTE | 2018-05-19 09:43 | Invasive Diagnostic Lab Proc ---
Name: Jakub Villa Date of Study: 05/19/2018 Date: 2000 Ht: 75.2in Medical Record#: [id number] Age: 17 Wt: 172.62lb Gender: Male BSA: 2.07 Order #: [id number] BMI: 21.46 Physicians Procedure Physician: Ross Velasquez MD Referring MD: Referring MD: Staff Name Position Time In Yessi Maddox RT Monitor 08:54 AM Saray Field RT (R) Scrub 08:54 AM Stephanie Murray RN Carpet Cleaning Technician 08:54 AM Indications Indication Non-Stemi Procedures Performed Procedure L HRT ARTERY/VENTRICLE ANGIO Pre-Procedure Checklist Informed consent is complete signed and on chart. H&P is on chart. ID band is on and ID verified with patient. Patient NPO for procedure The procedure was described for the patient and questions were answered. Blood Pressure: 119/71 ECG is on chart. Rhythm: NSR w/ST elevation Plan of Care Patient will tolerate the procedure without complications. Adequate level of comfort will be maintained. Hemodynamics will remain stable Patient will recover from procedure without complications. Respiratory function will be maintained. Cardiac rhythm will remain stable. Patient temperature will be maintained. Patient and/or family have verbalized understanding of the procedure. Patient Education Chief Complaint/Reason for Test: Cardiac Cath Developmental Category: Adult (18-64 years) Developmentally Appropriate for Age: Yes Learning Barriers: None Education Needs: Procedure Education Method: Verbal Information Taught: Cardiac Cath Educational Evaluation: Able to repeat information Intravenous Access Time IV Size Location DC'd Fluid/Drip Rate Units RN 08:53 AM 18g 1 /" Patent On Arrival Rt Antecubital 0.9NaCl 25 ml/hr Yessi Maddox RT Allergies No Known Allergies Vital Signs Time BP (mmHg) HR (bpm) O2 Sat. RR (bpm) LOC 08:54 AM 119 / 71 72 100 % 11 5 = Fully awake and oriented or at pre-proc level 08:55 AM / % 5 = Fully awake and oriented or at pre-proc level 08:55 AM / % 4 = Oriented but drowsy 09:10 AM / % 4 = Oriented but drowsy 08:50 AM 119 / 71 69 100 % 13 08:56 AM 121 / 74 69 98 % 18 09:00 AM 112 / 66 71 99 % 14 09:05 AM 120 / 73 74 96 % 11 09:10 AM 115 / 74 81 94 % 13 09:15 AM 117 / 72 96 96 % 19 09:20 AM 113 / 65 84 94 % 17 09:25 AM 115 / 69 86 95 % 15 09:30 AM 121 / 64 85 96 % 20 Procedural Medications Time Medication Dose Units Method Given By 08:55 AM Oxygen 2 L/min nasal cannula Stephanie Murray RN 08:59 AM Versed 1 mg Intravenous Pard 08:59 AM Fentanyl 50 mcg Intravenous Stephanie Murray RN 08:59 AM Lidocaine 2% 20 ml Subcutaneous Ross Velasquez MD ASA Classification: CLASS II- Mild systemic disease (i.e. well-controlled diabetes, hypertension, asthma, cigarette smoking) Hipolito Score Preprocedure Postprocedure Activity 2- Moves 4 extremities sustained head lift Activity 2- Moves 4 extremities sustained head lift Circulation 2- SBP +/= 20 points of pre-anesthetic level Circulation 2- SBP +/= 20 points of pre-anesthetic level Consciousness 2- Awake and alert oriented x 3 Consciousness 2- Awake and alert oriented x 3 O2 Saturation 2- Able to maintain O2 satruation of 92% on room air O2 Saturation 2- Able to maintain O2 satruation of 92% on room air Respiratory 2- Able to deep breathe and cough well Respiratory 2- Able to deep breathe and cough well Total Score 10 Total Score 10 Contrast Agent: Isovue Diagnostic Contrast: 47 ml Total Contrast: 47 ml Fluoro Dose: 2669 mGy Activated Clotting Time Time Seconds to Clot 09:14 AM 154 Procedure Log Time Note Enter By 08:43 AM CathStat 08:49 AM Vitals capture started with the following parameters, Patient=Adult, Interval=5 min, Initial Quudincs=778 mmHg, Deflation Rate=5 mmHg, Cuff placed on Right Arm 08:50 AM HR=69 bpm, JIGY=419/71 mmhg, AcX2=780 %, Resp=13 B/min 08:54 AM [facility] labor relations manager 2 [facility] Yessi Maddox RT Position: Monitor Time in: 08:54 chang 08:54 AM Saray Field RT (R) Position: Scrub Time in: 08:54 chang 08:55 AM Stephanie Murray RN Position: Carpet Cleaning Technician Time in: 08:54 [facility] 08:55 AM Patient charges- Angio tray pack, Navilyst 3mm J, Pulse Oximetry and ACIST tubing and transducer [facility] 08:55 AM Case Delayed No [facility] 08:55 AM Hair removed from procedure site in procedure lab using clippers. Bilateral groin prepped with Chloraprep by Saray Field (R), then patient was draped. Skin intact. [facility] 08:55 AM Physician arrived 08:55 [facility] 08:55 AM ASA Class CLASS II- Mild systemic disease (i.e. well-controlled diabetes, hypertension, asthma, cigarette smoking) [facility] 08:55 AM Meet and greet completed [facility] 08:55 AM Sign in performed according to hospital policy. Informed consent was obtained. [facility] 08:55 AM Procedure start 08:55 [facility] 08:55 AM Time: 08:55 Oxygen on at 2 L/min per nasal cannula by Stephanie Murray RN [facility] 08:55 AM Time: 08:55 Patient comfortable and pain free: Yes [facility] :55 AM Time: 08:55LOC: 5 = Fully awake and oriented or at pre-proc level [facility] 08:55 AM Clinical Presentation: Non-STEMI [facility] 08:56 AM HR=69 bpm, WPXL=280/74 mmhg, SpO2=98 %, Resp=18 B/min 08:59 AM Time: 08:59 Versed 1 mg Intravenous Given by Satish [facility] 08:59 AM Time: 08:59 Fentanyl 50 mcg Intravenous Given by Stephanie Murray RN [facility] 08:59 AM Time out was performed according to hospital policy. Conscious sedation and anesthesia was achieved (see medication log with in this report above) [facility] 09:00 AM HR=71 bpm, ZFQX=856/66 mmhg, SpO2=99.0 %, Resp=14 B/min 09:00 AM Time: 08:59 20 ml Lidocaine 2% to right groin Subcutaneous Given by Ross Velasquez MD [facility] 09:00 AM Pressure channel 1 zeroed. 09:01 AM Micro-Introducer Kit utilized for sheath placement [facility] 09:01 AM Bolus angiogram of right Ventricle complete: hand injected 3 ml of contrast [facility] 09:02 AM Access obtained by percutaneous puncture. 6Fr 10cm Cordis Aga sheath placed in right Femoral artery. [id number] [facility] 09:02 AM 5Fr FR 4 catheter inserted over the wire DN lparsley 09:02 AM wire removed [facility]ley 09:03 AM Recorded Pressure: LV, HR=71, Condition=Condition 1 (Left Ventricle) LV 89/26/27 09:03 AM Pressure channel 1 zeroed. 09:04 AM Catheter removed lparsley 09:05 AM 5Fr SRC catheter inserted over the wire [id number] lparsley 09:05 AM wire removed lparsley 09:05 AM HR=74 bpm, UDFZ=182/73 mmhg, SpO2=96.0 %, Resp=11 B/min 09:06 AM Recorded Pressure: Ao, HR=76, Condition=Condition 1 (Aorta) Ao 87/73/80 09:06 AM RCA angiography performed in multiple views. lparsley 09:06 AM Catheter removed lparsley 09:07 AM 5Fr JL3.5 catheter inserted over the wire [id number] lparsley 09:07 AM wire removed lparsley 09:07 AM LCA angiography performed in multiple views. [facility] 09:09 AM Catheter removed lparsley 09:09 AM 5Fr Pigtail catheter inserted over the wire [facility] lparsley 09:09 AM wire removed lparsley 09:09 AM Catheter crossed the aortic valve and was selectively placed in the left ventricle. Pressures recorded on pullback for left heart catheterization. lparsley 09:10 AM HR=81 bpm, OZVB=319/74 mmhg, SpO2=94.0 %, Resp=13 B/min 09:10 AM Recorded Pressure: LV, HR=84, Condition=Condition 1 (Left Ventricle) LV 83/11/13 09:10 AM Time: 08:55LOC: 4 = Oriented but drowsy [facility] 09:10 AM Time: 08:55 Patient comfortable and pain free: Yes [facility] 09:12 AM Recorded Pressure: LV, Ao, HR=84, Condition=Condition 1 (Left Ventricle) LV 113/0/16, (Aorta) Ao 101/74/88 09:12 AM wire and catheter removed lparsley 09:12 AM Procedure completed at 09:12 05/19/2018 lparsley 09:13 AM Did you address KATE flow and Dominance? Yes lparsley 09:13 AM Sign out completed: Radiation Dose 198.99 mGy, 2669.32 cGy/cm2 Fluoro Time: 3.2 Isovue 370 - 200ml contrast 47.3 ml given by Ross Velasquez MD. Complications: None. The patient was discharged out of the laborer orchard in stable condition. Cardiac Rehab Consult needed: NoConfirmed administered medications: Yes [facility] 09:13 AM Isovue 370 - 200ml,1 Bottle(s) [facility]. [facility] 09[facility] AM Estimated Blood Loss: minimal [facility] 09:13 AM Post ECG NSR [facility] 09:13 AM Post Blood Pressure 115/74 [facility] 09:14 AM Information taught Cardiac Cath [facility] 09:14 AM Learning barriers :None [facility] 09:14 AM Education Methods Verbal [facility] 09:14 AM Education evaluation Able to repeat information [facility] 09:14 AM Delay to floor No [facility] 09:14 AM Patient out of room: 09:14 [facility] 09:14 AM Family placed in consult room. [facility] 09:14 AM Complications: None [facility] 09:15 AM HR=96 bpm, PXHO=393/72 mmhg, SpO2=96.0 %, Resp=19 B/min 09:17 AM At 09:14 the ACT was 154 seconds. [facility] 09:17 AM Coronary Dominance: right [facility] 09:17 AM Left Main Coronary Artery with 0% stenosis [facility] 09:17 AM Proximal Left Anterior Descending Coronary Artery with 0% stenosis. If graft is supplying this territory, 0 % stenosis. [facility] 09:17 AM Mid/Distal Left Anterior Descending Coronary Artery and diagonal branches with 0% stenosis. If graft is supplying this area, 0 % stenosis [facility] 09:17 AM Circumflex, Obtuse Marginal, Left Posterior Descending, and Left Posterolateral Coronary Arteries with 0 % stenosis. If graft is supplying this area, 0 % stenosis [facility] 09:17 AM Right Coronary, Right Posterior Descending Arteries with Right Posterolateral and Acute Marginal branches with 0 % stenosis. If graft is supplying this area, 0 % stenosis [facility] 09:17 AM Ramus with 0% stenosis. If graft is supplying this area, 0 % stenosis [facility] 09:20 AM HR=84 bpm, NUJI=256/65 mmhg, SpO2=94.0 %, Resp=17 B/min 09:20 AM Report given to Ivanna OLSON [facility] 09[facility] AM HR=86 bpm, TKII=776/69 mmhg, SpO2=95.0 %, Resp=15 B/min 09:26 AM Time: 09:10 Patient comfortable and pain free: Yes [facility] 09[facility] AM Time: 09:10LOC: 4 = Oriented but drowsy [facility] 09:30 AM HR=85 bpm, HZLX=701/64 mmhg, SpO2=96.0 %, Resp=20 B/min 09:33 AM Arterial sheath pulled using manual compression and V+ Pad for 15 minutes by Saray Field RT (R) [facility] 09:33 AM Site status No bleeding/hematoma - Rt Groin as reported by Saray FieldR) at 09:33 [facility] 09:[facility] AM Opsite applied chang Complications Complication None None Hemodynamics Pressures Site Systolic/A Wave Diastolic/V Wave Mean LV 89 26 27 AO 87 73 80 LV 83 11 13 LV 113 0 16 AO 101 74 88 Post Procedure Information Blood Pressure: 115/74 mmHg Rhythm: NSR Post procedural instructions were given Site Checks Time Location Status Staff Sheath In? Note 09:33 AM Rt Groin No bleeding/hematoma Saray FieldR) Pulses Updated by Stephanie Murray RN on 05/19/2018 9:37:45 AM electronically signed on 05/19/2018 9:38:33 AM with status of Final
[2018-05-19] MEDS ORDERED: Colchicine 0.6 MG TABLET PO SCH (10:45)
[2018-05-19] MEDS: Aspirin 325 MG TABLET PO SCH ×2 (12:13→14:04)
[2018-05-19 16:14] VITALS: BP 108/71
--- NOTE | 2018-05-19 20:38 | Discharge Summary ---
Date of Encounter: 05/19/18 Time of Encounter: 20:35 - Discharge Diagnosis (1) Pericarditis Priority: Primary Status: Acute Qualifiers: Pericarditis type: unspecified type Chronicity: acute Qualified Code(s): I30.9 - Acute pericarditis, unspecified (2) Elevated troponin Priority: Primary Status: Acute (3) Acute electrocardiogram changes Priority: Primary Status: Acute (4) Lymphadenopathy Priority: Primary Status: Acute Hospital course: Mr. Villa is a 17 year old male with significant family history of cardiac disease who presented with elevated troponin. He was seen at outside hospital for troponin greater than 4 and was concern for myocardial ischemia and they were planning to transfer him via [facility] to [facility] for urgent catheterization. Patient became agitated and anxious and refused and signed out AMA from that facility and came immediately to our emergency department. Patient was admitted for elevated troponin with cardiology consult and underwent left heart catheterization this morning which revealed clean coronaries but concerns for myocarditis/pericarditis. Patient was started on colchicine and aspirin. This evening the patient became anxious and agitated. I was called by the nurse to his room due to concerns that the patient wanted to leave AMA. When I entered the room patient had artery removed his own IV and was stating that he was leaving immediately. I discussed with him that he is here for very serious cardiac concerns and I strongly recommended that he stay to complete his evaluation and treatment plan. Patient reported that he was claustrophobic and anxious and did not want to be bothered tonight and that he was leaving. I explained to him that his cardiac concerns are very serious and could be life- threatening. Patient verbalized that he understood but still stated that he was leaving. I again strongly recommended that he remain to complete evaluation offered to treat his anxiety but he refused and stated that he was leaving. Patient was of Daniella incompetent to make his own decisions and therefore will be leaving AGAINST MEDICAL ADVICE. Discharge discussed with: patient - Time Spent with Patient Total time spent providing and/or coordinating discharge services: - Discharge Medications Home Medications: Citalopram Hydrobromide [Celexa] 40 mg PO HS 05/18/18 [History] Allergies/Adverse Reactions: 3 Allergy/AdvReac Type Severity Reaction Status Date / Time No Known Allergies Allergy Verified 05/18/18 22:40 Date of admission: 05/19/18 11:42 Primary care physician: PCP NONE Discharging clinician: Jeremie Medel Anticipated date of discharge: 05/19/18 - Constitutional Vitals: Temp Pulse Resp BP Pulse Ox 98.8 F 80 18 108/71 99 05/19/18 16:10 05/19/18 16:10 05/19/18 16:10 05/19/18 16:10 05/19/18 16:10 Exam: . - Patient Status Disposition: Left Against Medical Advice Condition: Good Overall status at discharge: patient is not back to baseline - Discharge Instructions Follow Up With: NONE,PCP [Primary Care Provider] -
--- NOTE | 2018-05-21 17:35 | Electrocardiograph Report ---
[place] [id number] Test Date: 2018-05-18 Pat Name: Jakub Villa Department: EXAM11 Room: 2N15 Gender: M Creche Attendant: : 2000 Requested By: Dwight Rodriguez Order Number: [id number] Reading MD: Cristobal Diamond Measurements Intervals Bernard Rate: 102 P: 69 WV: 152 QRS: 93 QRSD: 93 T: 29 QT: 329 QTc: 429 Interpretive Statements Sinus tachycardia ST changes possibly due to pericarditis Electronically Signed On 05-21-2018 17:33:34 EDT by Cristobal Diamond
--- NOTE | 2018-05-21 17:36 | Electrocardiograph Report ---
[place] [id number] Test Date: 2018-05-18 Pat Name: Jakub Villa Department: EXAM11 Room: 2N15 Gender: M Superannuation Clerk: : 2000 Requested By: Shaggy Joyce Order Number: [id number] Reading MD: Cristobal Diamond Measurements Intervals [place] Rate: 94 P: 75 [place]: 152 QRS: 94 QRSD: 91 T: 37 QT: 334 QTc: 418 Interpretive Statements Sinus rhythm ST changes suggest acute pericarditis Electronically Signed On 05-21-2018 17:34:48 EDT by Cristobal Diamond
--- NOTE | 2018-05-21 17:43 | Electrocardiograph Report ---
[place] [id number] Test Date: 2018-05-19 Pat Name: Jakub Villa Department: 110 Room: 2N15 Gender: M Educational Program Assistant: : 2000 Requested By: James Rhoades Order Number: [id number] Reading MD: Cristobal Diamond Measurements Intervals [place] Rate: 76 P: 38 [place]: 165 QRS: 85 QRSD: 100 T: 65 QT: 345 QTc: 375 Interpretive Statements SINUS RHYTHM ST CHANGES SUGGEST ACUTE PERICARDITIS Electronically Signed On 05-21-2018 17:42:19 EDT by Cristobal Diamond
== END 2018-05-19 20:29 | disposition left against medical advice (07) | DRG 287 ==
LOC: EMEROOARM 20:32 → 2NENU 20:32 → SUATTDRO 22:48 → 2NNU 22:56
PROVIDERS: ADMIT Family Medicine; ATTEND Internal Medicine